=== PATIENT | male | born 1995 | race Caucasian/White ===

== ENCOUNTER 2023-07-23 11:25 | Inpatient (IN) | payer OTHER ==
[2023-07-23 12:16] VITALS: BMI 23.6
[2023-07-23] MEDS ORDERED: POLYETHYLENE GLYCOL (HEALTHYLAX) 3350 17 GM PACKET PO PRN (14:20)
[2023-07-23] MEDS ORDERED: ACETAMINOPHEN 325 MG TABLET (FP) PO PRN (14:20)
[2023-07-23] MEDS ORDERED: guaiFENesin 600 MG TABLET.ER (FP) PO PRN (14:20)
[2023-07-23] MEDS ORDERED: MAGNESIUM HYDROX 2400MG/30ML ORAL SUSPENSION 30 ML CUP PO PRN (14:20)
[2023-07-23] MEDS ORDERED: DICYCLOMINE HCL 10 MG CAPSULE PO PRN (14:20)
[2023-07-23] MEDS ORDERED: MAG HYDROX/AL HYDROX/SIMETH 30 ML UNIT-DOSE CUP PO PRN (14:20)
[2023-07-23] MEDS ORDERED: IBUPROFEN 400 MG TABLET (FP) PO PRN (14:20)
[2023-07-23] MEDS ORDERED: BENZONATATE 200 MG CAPSULE PO PRN (14:20)
[2023-07-23] MEDS ORDERED: BISMUTH SUBSALICYLATE 524 MG/30 ML PO PRN (14:20)
[2023-07-23] MEDS ORDERED: NALOXONE HCL (KLOXXADO) 8 MG SPRAY NS PRN (14:20)
[2023-07-23] MEDS ORDERED: NICOTINE POLACRILEX 4 MG GUM BUC PRN (14:20)
[2023-07-23] MEDS ORDERED: hydrOXYzine PAMOATE 25 MG CAPSULE (FP) PO PRN (14:20)
[2023-07-23] MEDS ORDERED: NALOXONE HCL 0.4 MG/ML VIAL IM PRN (14:20)
[2023-07-23] MEDS ORDERED: BENZOCAINE/MENTHOL (CHLORASEPTIC ) LOZENGE MM PRN (14:20)
[2023-07-23] MEDS ORDERED: LOPERAMIDE HCL 2 MG CAPSULE PO PRN (14:20)
[2023-07-23] MEDS ORDERED: IBUPROFEN 600 MG TABLET (FP) PO PRN (14:20)
[2023-07-23] MEDS ORDERED: LORazepam 1 MG TABLET PO PRN (14:29)
[2023-07-23] MEDS ORDERED: NICOTINE 21 MG/24 HOURS TOPICAL PATCH ONE (14:47)
[2023-07-23] MEDS ORDERED: PRENATAL VITAMINS W/ FOLIC ACID TABLET (FP) PO ONE (14:48)
[2023-07-23] MEDS ORDERED: methaDONE HCL 10 MG TABLET (FOR DETOX USE ONLY) ONE (14:48)
[2023-07-23] MEDS: NICOTINE 21 MG/24 HOURS TOPICAL PATCH TD SCH (14:54)
[2023-07-23] MEDS: methaDONE HCL 10 MG TABLET PO ONE ×2 (14:55→15:00)
[2023-07-23] MEDS: PRENATAL VITAMINS W/ FOLIC ACID TABLET (FP) PO SCH (14:55)
[2023-07-23] MEDS: methaDONE 40 MG, methaDONE 10 MG PO ONE (15:06)
[2023-07-23] MEDS: LORazepam 2 MG TABLET PO SCH (18:00)
[2023-07-23] MEDS: AMOX TR/POT CLAV 500MG/125MG TABLETS (FP) PO SCH (18:00)
[2023-07-23] MEDS ORDERED: cloNIDine HCL 0.1 MG TABLET PO SCH (18:00)
[2023-07-23] MEDS: MELATONIN 5 MG TABLETS PO SCH (22:39)
[2023-07-23] MEDS: THIAMINE 100 MG TABLET PO SCH (22:39)
[2023-07-23] MEDS: ONDANSETRON *ODT* 4 MG TABLET SL PRN (22:40)
[2023-07-24] MEDS: methaDONE HCL 40 MG DISPERSABLE TABLET PO ONE (05:25)
[2023-07-24] MEDS: METHOCARBAMOL 500 MG TABLET PO PRN (23:07)
[2023-07-25] MEDS: methaDONE 40 MG, methaDONE 10 MG PO ONE (05:59)
[2023-07-25] MEDS ORDERED: methaDONE HCL 40 MG DISPERSABLE TABLET PO ONE (06:00)
[2023-07-25] MEDS: LORazepam 1 MG TABLET PO SCH (06:00)
[2023-07-25] MEDS: cloNIDine HCL 0.1 MG TABLET PO PRN (17:07)
[2023-07-25 21:31] VITALS: RESP 18
[2023-07-26] MEDS ORDERED: LORazepam 0.5 MG TABLET PO PRN
[2023-07-26] MEDS: LORazepam 0.5 MG TABLET PO SCH (05:05)
[2023-07-26] MEDS ORDERED: methaDONE HCL 40 MG DISPERSABLE TABLET PO ONE (06:00)
[2023-07-26] MEDS: methaDONE 40 MG, methaDONE 20 MG PO ONE (06:06)
[2023-07-26 13:39] VITALS: BP 118/85; PULSE 76; TEMP 97.7
[2023-07-27] MEDS ORDERED: LORazepam 0.5 MG TABLET PO ONE (05:00)
[2023-07-27] MEDS ORDERED: methaDONE HCL 40 MG DISPERSABLE TABLET PO ONE (06:00)
[2023-07-27] MEDS ORDERED: methaDONE 40 MG, methaDONE 30 MG PO ONE (06:00)
[2023-07-28] MEDS ORDERED: methaDONE HCL 40 MG DISPERSABLE TABLET PO ONE (06:00)
== END 2023-07-26 15:53 | disposition home or self-care (01) | DRG 773 ==
LOC: YASAS 11:25 → Y6N 13:55
PROVIDERS: ADMIT Allergy & Immunology; ATTEND Surgery
PROC: HZ2ZZZZ Detoxification Services for Substance Abuse Treatment (ICD-10-PCS; principal; 2023-07-23)
DX: F11.23 Opioid dependence with withdrawal (principal); F10.230 Alcohol dependence with withdrawal, uncomplicated; F12.20 Cannabis dependence, uncomplicated; F17.210 Nicotine dependence, cigarettes, uncomplicated; L98.8 Other specified disorders of the skin and subcutaneous tissue; R05.1 Acute cough
CPT/HCPCS: 87635; 87811; Q0162